=== PATIENT | male | born 2000 | race African-American/Black ===

== ENCOUNTER 2020-04-04 07:27 | Outpatient (REF) | payer BC, SELFPAY | END 2020-04-04 07:28 | disposition home or self-care (01) | LOC: HO.LAB 07:27 | PROVIDERS: Visit Provider Internal Medicine | DX: Z20.828 Contact with and (suspected) exposure to other viral communicable diseases (principal) | CPT/HCPCS: C9803; U0003 ==

== ENCOUNTER 2020-04-15 11:55 | Outpatient (REF) | payer BC, SELFPAY | END 2020-04-15 11:56 | disposition home or self-care (01) | LOC: HO.LAB 11:55 | PROVIDERS: Visit Provider Internal Medicine | DX: Z20.828 Contact with and (suspected) exposure to other viral communicable diseases (principal) | CPT/HCPCS: C9803; U0003 ==